=== PATIENT | male | born 1980 | race Caucasian/White ===

== ENCOUNTER 2024-07-09 16:42 | Emergency (ER) | payer SELFPAY ==
[2024-07-09 16:50] VITALS: BP 127/77
--- NOTE | 2024-07-09 17:03 | EDRN ---
Dr. Rosales in to speak w/ pt. Pt had requested to see someone about his substance abuse to police but is now declining to speak w/ crisis or [facility] at this time. Pt is fully ambulatory and A, A & oriented x4.
--- NOTE | 2024-07-09 17:05 | EDRN ---
Dr. Rosales said pt is sober enough to leave and be discharged at this time.
--- NOTE | 2024-07-09 17:05 | ED.GENMED ---
History of Present Illness
General
Chief Complaint: Alcohol Problem
Time Seen by Provider: 07/09/24 16:55
History of Present Illness
History of Present Illness:
44-year-old male history of alcohol abuse, depression presenting for intoxication. Per EMS, patient was found outside [facility] parking lot by police. Patient admits to drinking 8 beers today and huffing a spray can. Patient denies any suicidal or
homicidal ideation. Patient denies any physical complaints. Patient denies falling or striking his head. Patient states that he has not drank for weeks prior to today. Patient states he has a lot going on at work and recently ended a
relationship. Pt states he goes to and will continue going.
Past History
Past History
ED Past Medical History: Psychiatric (Depression, alcohol abuse)
Social History
Alcohol: Daily
Drug: Narcotics
Phy Exam
Physical Exam
Physical Exam:
General: Alert, no acute distress
Head: NCAT
Eyes: clear conjunctiva
Neck: supple
Cardiac: regular rate and rhythm, no murmur
Lungs: clear to auscultation bilaterally. No wheezes, rales, or rhonchi. Speaking full unlabored sentences. No respiratory distress.
Abdomen: soft, nondistended nontender. No rebound or guarding.
MSK: no lower extremity edema bilaterally. No deformity
Skin: warm, dry
Neuro: Alert and oriented x3. no focal deficits. No slurred speech. Ambulatory with steady gait.
Scores
Withdrawal Assessment of Alcohol
Withdrawal Assessment Completed?: Not applicable
Course
Vital Signs
Initial and Last Documented VS:
Initial Vital Signs
Temp Pulse Resp BP Pulse Ox
97.6 F 96 16 127/77 99
07/09/24 16:50 07/09/24 16:50 07/09/24 16:50 07/09/24 16:50 07/09/24 16:50
Last Documented Vital Signs
Temp Pulse Resp BP Pulse Ox
97.6 F 96 16 127/77 99
07/09/24 16:50 07/09/24 16:50 07/09/24 16:50 07/09/24 16:50 07/09/24 16:50
MDM/Problems Addressed
MDM/Problems Addressed:
44-year-old male history of alcohol abuse, depression presenting with intoxication. Patient admits to drinking 8 beers today. Patient states he also huffed a spray can. Patient was found outside at [facility] parking lot and brought by police. Patient
denies any suicidal or homicidal ideation. Offered patient to be evaluated by Bebo alcantara, patient declines. Patient states that he is currently in AA and is requesting discharge, states that he will follow-up with AA outpatient. Patient is alert and
oriented x 3, no slurred speech, ambulatory with steady gait. Patient is clinically sober at this time. Stable for discharge
*Critical Care Note
Total Time (30-74mins, 75-104mins- exclusive of procedures): Not Applicable
ED Attending Note
-
Portions of this chart may have been created with voice recognition software.� Occasional wrong word or��sound alike� substitutions may have occurred due to the inherent limitations of voice recognition software.
Discharge Plan
Departure
Patient Disposition: Home (Routine Discharge)
Date of Disposition: 07/09/24
Time of Disposition: 17:10
Patient with high blood pressure during this ER visit?: No
Discharge Problem:
Intoxication
Instructions: Drug Misuse and Addiction (DC), Alcohol Use Disorder (DC)
Prescriptions:
No Action
escitalopram oxalate 20 MG tablet
20 mg PO DAILY
Activity Restrictions/Additional Instructions:
Follow up with AA
Drink responsibly
Return to the emergency department for new/worsening symptoms
Interventions
Interventions:
*Risk Screen - Suicide Last Done: 07/09/24 16:50
*General Assessment Last Done: 07/09/24 16:50
*Neglect/Abuse Screening Last Done: 07/09/24 16:50
*ED- Fall Risk Assessment Last Done: 07/09/24 17:04
*ED COVID-19 Vaccine History Last Done: 07/09/24 17:04
*Nursing Disposition Last Done: 07/09/24 17:18
ED- Neurological Assessment Last Done: 07/09/24 17:06
ED-Psychological Assessment Last Done: 07/09/24 17:06
Discharge Date and Time
Discharge Date/Time: 07/09/24 17:19
Print Language: ANGOLAN
--- NOTE | 2024-07-09 17:07 | EDRN ---
Per Dr. Rosales pt is okay to call and [employer] and leave. Pt is not that drunk per Dr. Rosales. Pt is using phone to get an [employer] at this time.
== END 2024-07-09 17:19 | disposition home or self-care (01) ==
LOC: EMR 16:42
PROVIDERS: EMERGENCY PHYSICIAN Emergency Medicine
DX: F10.129 Alcohol abuse with intoxication, unspecified (principal); F32.A Depression, unspecified
CPT/HCPCS: 99283